=== PATIENT | female | born 1950 | race Caucasian/White ===

== ENCOUNTER 2022-07-17 21:46 | Inpatient (IN) | payer BC, MEDICARE ==
[2022-07-17 22:13] LABS: #Eosinphils 0.1 thou/uL (0.0-0.7); #Lymphocytes 1.2 thou/uL (1.20-3.40); #Monocytes 0.9 thou/uL (0.11-0.59); #Neutrophils 8.1 thou/uL (1.40-6.50); %Basophils 0.3 % (0.0-1.0); %Eosinophils 1.1 % (0.0-10.0); %Lymphocytes 11.3 % (21.0-51.0); %Monocytes 8.7 % (0.0-10.0); %Neutrophils 78.6 % (42.0-75.0); Hemoglobin 12.5 g/dL (12.0-16.0); Mean Corpuscular HGB CONC 32.6 g/dL (32.0-36.0); Mean Corpuscular Hemoglobin 31.3 pg (27.0-31.0); Mean Platelet Volume 6.9 fL (7.4-10.4); Platelet Count 215 10x3/uL (130-400); RBC Distribution Width 11.8 % (11.5-14.5); White Blood Cell (WBC) Count 10.3 10x3/uL (4.8-10.8)
[2022-07-17] MEDS ORDERED: CEFAZOLIN 2 GM VIAL ONE (22:13)
[2022-07-17] MEDS ORDERED: Ondansetron PF 4 MG/2 ML Vial ONE (22:13)
[2022-07-17] MEDS ORDERED: Morphine 4 MG/ML VIAL ONE (22:13)
[2022-07-17 22:36] LABS: ALT (SGPT) 29 U/L (8-55); AST (SGOT) 30 U/L (5-34); Albumin 3.9 g/dL (3.4-4.8); Alkaline Phosphatase 103 U/L (40-110); Anion Gap 15 mmol/L (10-20); BUN (Urea Nitrogen) 12 mg/dL (9.8-20.1); Bilirubin, Total 0.4 mg/dL (0.2-1.2); Calc. Creatinine Clearance 0 mL/min (70-130); Carbon Dioxide 23 mmol/L (23-31); Chloride 104 mmol/L (98-107); Estimated GFR 95; Globulin 2.4 g/dL (2.4-3.5); Glucose 108 mg/dL (83-110); Potassium 3.4 mmol/L (3.5-5.1); Protein, Total 6.3 g/dL (5.8-8.1); Sodium 139 mmol/L (136-145)
[2022-07-17] MEDS ORDERED: Dextrose 50% Abboject 50 ML SYRINGE SLOW IVP PRN (23:09)
[2022-07-17] MEDS ORDERED: Ondansetron ODT 4 MG TAB PO PRN (23:09)
[2022-07-17] MEDS ORDERED: Ondansetron PF 4 MG/2 ML Vial IVP PRN (23:09)
[2022-07-17] MEDS ORDERED: TETANUS, DIPHTHERIA TOX,ADULT (TDVAX) 0.5 ML VIAL IM ONE (23:09)
[2022-07-17] MEDS ORDERED: Dextrose 5% in Water 1,000 ML IV PRN (23:09)
[2022-07-17] MEDS ORDERED: Sodium Chloride 0.9% 1,000 ML IV SCH (23:15)
[2022-07-17] MEDS ORDERED: traMADol HCl 50 MG TAB PO PRN (23:19)
[2022-07-17] MEDS ORDERED: HYDROmorphone 0.5 MG/0.5 ML SYRINGE ONE (23:21)
[2022-07-17] MEDS ORDERED: Morphine 2 MG/ML VIAL SLOW IVP PRN (23:27)
[2022-07-17] MEDS ORDERED: Boostrix 0.5 ML (Tdap) VIAL (>/=7 yrs of age) ONE (23:30)
[2022-07-18 06:09] LABS: #Lymphocytes 0.2 thou/uL (1.20-3.40); #Monocytes 0.8 thou/uL (0.11-0.59); #Neutrophils 8.6 thou/uL (1.40-6.50); %Basophils 0.2 % (0.0-1.0); %Eosinophils 0.1 % (0.0-10.0); %Lymphocytes 2.4 % (21.0-51.0); %Monocytes 7.9 % (0.0-10.0); %Neutrophils 89.4 % (42.0-75.0); Hemoglobin 11.1 g/dL (12.0-16.0); Mean Corpuscular HGB CONC 33.7 g/dL (32.0-36.0); Mean Corpuscular Hemoglobin 31.9 pg (27.0-31.0); Mean Corpuscular Volume 94.7 fl (78.0-98.0); Mean Platelet Volume 6.7 fL (7.4-10.4); Platelet Count 209 10x3/uL (130-400); RBC Distribution Width 11.6 % (11.5-14.5); Red Blood Cell (RBC) Count 3.49 mill/uL (4.20-5.40); White Blood Cell (WBC) Count 9.6 10x3/uL (4.8-10.8)
[2022-07-18] MEDS ORDERED: traMADol HCl 50 MG TAB ONE (06:11)
[2022-07-18] MEDS: traMADol HCl 50 MG TAB PO SCH ×4 (06:20→17:58)
[2022-07-18] MEDS: Acetaminophen 500 MG TAB PO SCH ×4 (06:20→17:57)
[2022-07-18 06:33] LABS: Anion Gap 11 mmol/L (10-20); BUN (Urea Nitrogen) 11 mg/dL (9.8-20.1); Calc. Creatinine Clearance 0 mL/min (70-130); Calcium 8.7 mg/dL (7.8-10.44); Carbon Dioxide 23 mmol/L (23-31); Chloride 104 mmol/L (98-107); Estimated GFR 99; Glucose 150 mg/dL (83-110); Magnesium 1.9 mg/dL (1.6-2.6); Phosphorus 3.6 mg/dL (2.3-4.7); Potassium 3.9 mmol/L (3.5-5.1); Sodium 134 mmol/L (136-145)
[2022-07-18] MEDS ORDERED: Acetaminophen 500 MG TAB ONE (07:16)
[2022-07-18] MEDS ORDERED: Magnesium 2 GM/50 ML(in water) 2 GM in Premix Bag 1 BAG IVPB SCH (07:45)
[2022-07-18] MEDS ORDERED: Potassium Phosphate 15 MMOL in Sodium Chloride 0.9% 250 ML 250 ML IVPB SCH (07:45)
[2022-07-18] MEDS: Ibuprofen 200 MG TAB PO SCH ×3 (07:52→21:49)
[2022-07-18] MEDS: CEFAZOLIN 2 GM in Sodium Chloride 0.9% 100 ML IVPB SCH ×3 (07:53→21:51)
[2022-07-18] MEDS ORDERED: CEFAZOLIN 2 GM VIAL ONE ×2 (07:54→12:35)
[2022-07-18] MEDS ORDERED: Potassium Phosphate 15 MMOL, Magnesium Sulfate 2 GM in Sodium Chloride 0.9% 250 ML 250 ML IVPB SCH (08:00)
[2022-07-18 09:01] LABS: SARS-CoV-2 NAA Rapid Test Not Detected (NotDetected)
[2022-07-18 09:05] VITALS: BMI 32.0
[2022-07-18] MEDS: Ferrous Sulfate 325 MG TAB PO SCH (09:43)
[2022-07-18] MEDS ORDERED: Fioricet 325/50/40 mg Tablet PO PRN (10:48)
[2022-07-18] MEDS ORDERED: fentaNYL PF 100 MCG/2 ML SYRINGE ONE (10:56)
[2022-07-18] MEDS: Famotidine 20 MG TAB PO SCH ×2 (11:31→21:50)
[2022-07-18] MEDS: Ascorbic Acid 500 mg Chewable Tablet PO SCH (11:31)
[2022-07-18] MEDS: Gabapentin 300 MG CAP PO SCH ×2 (11:32→21:47)
[2022-07-18] MEDS ORDERED: Neomycin-Polymyxin 1 ML AMP ONE (11:48)
[2022-07-18] MEDS ORDERED: Sodium Chloride 0.9% 100 ML ONE (12:35)
[2022-07-18] MEDS ORDERED: Promethazine HCl 25 MG/ML VIAL ONE (12:37)
[2022-07-18] MEDS ORDERED: Ondansetron PF 4 MG/2 ML Vial ONE (12:43)
[2022-07-18] MEDS ORDERED: PROPOFOL 200 MG/20 ML VIAL ONE (12:43)
[2022-07-18] MEDS ORDERED: NEOSTIGMINE 3 MG/3 ML SYR 3 MG/3 ML SYRINGE ONE (12:43)
[2022-07-18] MEDS ORDERED: Dexamethasone 20 MG/5 ML VIAL ONE (12:43)
[2022-07-18] MEDS ORDERED: Lidocaine 1% PF 5 ML VIAL ONE (12:43)
[2022-07-18] MEDS ORDERED: Rocuronium Bromide 10 MG/ML (10ML VIAL) ONE (12:43)
[2022-07-18] MEDS ORDERED: Glycopyrrolate 0.2 MG/ML 5 ML SYRINGE ONE (12:43)
[2022-07-18] MEDS ORDERED: FLU VACC QS2022-23(65YR UP)/PF 240 MCG/0.7 ML SYRINGE IM ONE (12:45)
[2022-07-18] MEDS ORDERED: Ondansetron HCl/PF 4 MG/2 ML Vial IVP PRN (14:54)
[2022-07-18] MEDS ORDERED: Promethazine HCl 25 MG/ML VIAL IM PRN (14:54)
[2022-07-18] MEDS ORDERED: Fentanyl 100 MCG/2 ML VIAL ONE (15:00)
[2022-07-18] MEDS ORDERED: HYDROmorphone 0.5 MG/0.5 ML SYRINGE ONE (15:21)
[2022-07-18] MEDS ORDERED: CEFAZOLIN 2 GM in Sodium Chloride 0.9% 100 ML IVPB SCH (16:05)
[2022-07-19] MEDS: traMADol HCl 50 MG TAB PO SCH ×4 (00:26→17:57)
[2022-07-19] MEDS: Acetaminophen 500 MG TAB PO SCH ×4 (00:26→17:58)
[2022-07-19] MEDS ORDERED: Levothyroxine Sodium 125 MCG TAB PO SCH (06:00)
[2022-07-19] MEDS: Ibuprofen 200 MG TAB PO SCH ×2 (06:04→15:07)
[2022-07-19 07:23] LABS: Anion Gap 11 mmol/L (10-20); BUN (Urea Nitrogen) 6 mg/dL (9.8-20.1); Calc. Creatinine Clearance 125 mL/min (70-130); Calcium 8.1 mg/dL (7.8-10.44); Carbon Dioxide 22 mmol/L (23-31); Chloride 105 mmol/L (98-107); Estimated GFR 99; Glucose 106 mg/dL (83-110); Phosphorus 2.6 mg/dL (2.3-4.7); Sodium 134 mmol/L (136-145)
[2022-07-19 07:27] LABS: #Lymphocytes 0.7 thou/uL (1.20-3.40); #Monocytes 1.2 thou/uL (0.11-0.59); #Neutrophils 6.9 thou/uL (1.40-6.50); %Eosinophils 0.4 % (0.0-10.0); %Lymphocytes 7.5 % (21.0-51.0); %Monocytes 13.1 % (0.0-10.0); %Neutrophils 79.1 % (42.0-75.0); Hemoglobin 9.7 g/dL (12.0-16.0); Mean Corpuscular HGB CONC 33.2 g/dL (32.0-36.0); Mean Corpuscular Hemoglobin 31.9 pg (27.0-31.0); Mean Corpuscular Volume 96.1 fl (78.0-98.0); Mean Platelet Volume 6.8 fL (7.4-10.4); Platelet Count 200 10x3/uL (130-400); RBC Distribution Width 11.7 % (11.5-14.5); Red Blood Cell (RBC) Count 3.03 mill/uL (4.20-5.40); White Blood Cell (WBC) Count 8.8 10x3/uL (4.8-10.8)
[2022-07-19] MEDS ORDERED: Tranexamic Acid 1,000 MG in Sodium Chloride 0.9% 250 ML 250 ML IVPB SCH (09:00)
[2022-07-19] MEDS: Famotidine 20 MG TAB PO SCH ×2 (09:43→21:40)
[2022-07-19] MEDS: Ascorbic Acid 500 mg Chewable Tablet PO SCH (09:43)
[2022-07-19] MEDS: Gabapentin 300 MG CAP PO SCH ×2 (09:43→21:39)
[2022-07-19] MEDS: Ferrous Sulfate 325 MG TAB PO SCH (09:43)
[2022-07-19] MEDS: Milk Of Magnesia 30 ML UDCUP PO SCH (21:40)
[2022-07-19] MEDS: Senokot S 8.6-50 MG TAB PO SCH (21:40)
[2022-07-19] MEDS: Polyethylene Glycol 3350 17 GM Packet PO SCH (21:42)
[2022-07-19] MEDS: Bisacodyl 10 MG SUPP PR SCH (21:43)
[2022-07-19] MEDS ORDERED: Sodium Chloride 0.9% 1,000 ML IV SCH (23:55)
[2022-07-20] MEDS ORDERED: Tranexamic Acid 1,000 MG in Sodium Chloride 0.9% 100 ML IVPB SCH (05:00)
[2022-07-20] MEDS: traMADol HCl 50 MG TAB PO SCH ×2 (05:08)
[2022-07-20] MEDS: Thyroid 60 MG TAB PO SCH (05:08)
[2022-07-20] MEDS: Acetaminophen 500 MG TAB PO SCH ×5 (05:09→23:48)
[2022-07-20 06:16] LABS: Anion Gap 10 mmol/L (10-20); BUN (Urea Nitrogen) 8 mg/dL (9.8-20.1); Band 9 % (5-11); Calc. Creatinine Clearance 136 mL/min (70-130); Calcium 8.1 mg/dL (7.8-10.44); Carbon Dioxide 25 mmol/L (23-31); Chloride 103 mmol/L (98-107); Eosinophils 2 % (0-10); Estimated GFR 101; Glucose 99 mg/dL (83-110); Hemoglobin 9.5 g/dL (12.0-16.0); Hypochromia SLIGHT = 6-15 cells (100X) (0-5/hpf); Lymphocytes 4 % (21-51); MDiff Complete? YES; Magnesium 1.8 mg/dL (1.6-2.6); Mean Corpuscular HGB CONC 32.9 g/dL (32.0-36.0); Mean Corpuscular Hemoglobin 31.6 pg (27.0-31.0); Mean Corpuscular Volume 96.3 fl (78.0-98.0); Mean Platelet Volume 6.8 fL (7.4-10.4); Monocytes 13 % (0-10); Neutrophil 72 % (42-75); Phosphorus 2.6 mg/dL (2.3-4.7); Platelet Count 193 10x3/uL (130-400); Platelet Morphology Comment Appears Adequate; Potassium 3.8 mmol/L (3.5-5.1); RBC Distribution Width 11.7 % (11.5-14.5); Red Blood Cell (RBC) Count 3.01 mill/uL (4.20-5.40); Sodium 134 mmol/L (136-145)
[2022-07-20] MEDS ORDERED: Potassium Phosphate 30 MMOL, Magnesium Sulfate 2 GM in Sodium Chloride 0.9% 250 ML IVPB SCH (09:00)
[2022-07-20] MEDS ORDERED: Bisacodyl 10 MG SUPP PR SCH (09:00)
[2022-07-20] MEDS ORDERED: Polyethylene Glycol 3350 17 GM Packet PO SCH (09:00)
[2022-07-20] MEDS ORDERED: CEFAZOLIN 2 GM in Sodium Chloride 0.9% 100 ML IVPB SCH ×2 (09:00→14:00)
[2022-07-20] MEDS ORDERED: Vancomycin 1.5 GRAM/300 ML BAG 1.5 GM in Premix Bag 1 BAG IVPB SCH (09:00)
[2022-07-20] MEDS ORDERED: Milk Of Magnesia 30 ML UDCUP PO SCH (09:00)
[2022-07-20] MEDS ORDERED: Magnesium 2 GM/50 ML(in water) 2 GM in Premix Bag 1 BAG IVPB SCH (09:00)
[2022-07-20] MEDS ORDERED: Vancomycin (BATCH) 1.5 GRAM/300 ML BAG ONE (10:15)
[2022-07-20] MEDS ORDERED: Tranexamic Acid 1,000 MG/10 ML VIAL ONE (10:15)
[2022-07-20] MEDS ORDERED: Sodium Chloride 0.9% 100 ML ONE ×2 (10:15→11:26)
[2022-07-20] MEDS ORDERED: Fentanyl 100 MCG/2 ML VIAL ONE (10:41)
[2022-07-20] MEDS ORDERED: Midazolam HCl 2 mg/2 ml Vial ONE (11:09)
[2022-07-20] MEDS ORDERED: CEFAZOLIN 2 GM VIAL ONE (11:26)
[2022-07-20] MEDS ORDERED: HYDROcodone/Acetaminophen 10/325 mg Tablet PO PRN ×4 (11:31→12:00)
[2022-07-20] MEDS ORDERED: Bupivacaine HCl 0.5%/Epinephrine 1:200,000/PF 30 ml Vial ONE (11:36)
[2022-07-20] MEDS ORDERED: fentaNYL PF 100 MCG/2 ML SYRINGE ONE ×2 (11:47→15:14)
[2022-07-20] MEDS ORDERED: Fentanyl 100 MCG/2 ML VIAL IV PRN (11:58)
[2022-07-20] MEDS ORDERED: Lidocaine 1% PF 5 ML VIAL ONE (12:00)
[2022-07-20] MEDS ORDERED: Rocuronium Bromide 10 MG/ML (10ML VIAL) ONE (12:00)
[2022-07-20] MEDS ORDERED: Dexamethasone 20 MG/5 ML VIAL ONE (12:00)
[2022-07-20] MEDS ORDERED: Promethazine HCl 25 MG/ML VIAL IM PRN (12:00)
[2022-07-20] MEDS ORDERED: Ropivacaine 0.2% 550 ML 550 ML NERVE BLCK SCH (12:00)
[2022-07-20] MEDS ORDERED: traMADol HCl 50 MG TAB PO SCH (12:00)
[2022-07-20] MEDS ORDERED: Zolpidem Tartrate 5 MG TAB PO PRN (12:00)
[2022-07-20] MEDS ORDERED: Ondansetron PF 4 MG/2 ML Vial ONE (12:00)
[2022-07-20] MEDS ORDERED: Glycopyrrolate 0.2 MG/ML 5 ML SYRINGE ONE (12:00)
[2022-07-20] MEDS ORDERED: PROPOFOL 200 MG/20 ML VIAL ONE (12:00)
[2022-07-20] MEDS ORDERED: Ondansetron PF 4 MG/2 ML Vial IVP PRN (12:00)
[2022-07-20] MEDS ORDERED: NEOSTIGMINE 3 MG/3 ML SYR 3 MG/3 ML SYRINGE ONE (12:00)
[2022-07-20 12:42] LABS: Thyroid Stimulating Hormone 1.7065 uIU/mL (0.35-4.94)
[2022-07-20] MEDS ORDERED: SUGAMMADEX SODIUM 200 MG/2 ML VIAL ONE (12:52)
[2022-07-20] MEDS: Ascorbic Acid 500 mg Chewable Tablet PO SCH (14:14)
[2022-07-20] MEDS: Ferrous Sulfate 325 MG TAB PO SCH (14:14)
[2022-07-20] MEDS: Gabapentin 300 MG CAP PO SCH ×2 (14:16→21:16)
[2022-07-20] MEDS: Famotidine 20 MG TAB PO SCH ×2 (14:16→21:15)
[2022-07-20] MEDS: Senokot S 8.6-50 MG TAB PO SCH ×2 (14:16→21:15)
[2022-07-20] MEDS: CEFAZOLIN 2 GM in Sodium Chloride 0.9% 100 ML IVPB SCH (21:13)
[2022-07-20] MEDS: Bisacodyl 10 MG SUPP PR SCH (21:16)
[2022-07-20] MEDS: Polyethylene Glycol 3350 17 GM Packet PO SCH (21:17)
[2022-07-20] MEDS: Milk Of Magnesia 30 ML UDCUP PO SCH (23:46)
[2022-07-20] MEDS: Vancomycin 1.5 GRAM/300 ML BAG 1.5 GM in Premix Bag 1 BAG IVPB SCH (23:50)
[2022-07-21] MEDS: CEFAZOLIN 2 GM in Sodium Chloride 0.9% 100 ML IVPB SCH ×2 (04:05→17:19)
[2022-07-21 05:42] LABS: Hemoglobin 8.4 g/dL (12.0-16.0); Mean Corpuscular Hemoglobin 31.5 pg (27.0-31.0); Mean Corpuscular Volume 95.4 fl (78.0-98.0); Platelet Count 201 10x3/uL (130-400); RBC Distribution Width 11.7 % (11.5-14.5); Red Blood Cell (RBC) Count 2.68 mill/uL (4.20-5.40); White Blood Cell (WBC) Count 7.5 10x3/uL (4.8-10.8)
[2022-07-21] MEDS: Thyroid 60 MG TAB PO SCH (05:46)
[2022-07-21] MEDS: Acetaminophen 500 MG TAB PO SCH ×2 (05:46→18:30)
[2022-07-21 06:03] LABS: Anion Gap 12 mmol/L (10-20); BUN (Urea Nitrogen) 7 mg/dL (9.8-20.1); Calc. Creatinine Clearance 130 mL/min (70-130); Calcium 8.6 mg/dL (7.8-10.44); Carbon Dioxide 25 mmol/L (23-31); Chloride 103 mmol/L (98-107); Estimated GFR 100; Glucose 114 mg/dL (83-110); Magnesium 1.9 mg/dL (1.6-2.6); Phosphorus 3.1 mg/dL (2.3-4.7); Sodium 136 mmol/L (136-145)
[2022-07-21 06:16] LABS: Band 2 % (5-11); Lymphocytes 6 % (21-51); MDiff Complete? YES; Monocytes 16 % (0-10); Neutrophil 76 % (42-75)
[2022-07-21] MEDS: Gabapentin 300 MG CAP PO SCH ×2 (08:52→20:32)
[2022-07-21] MEDS: Famotidine 20 MG TAB PO SCH ×2 (08:52→20:32)
[2022-07-21] MEDS: Senokot S 8.6-50 MG TAB PO SCH ×2 (08:53→20:35)
[2022-07-21] MEDS: Ascorbic Acid 500 mg Chewable Tablet PO SCH (08:54)
[2022-07-21] MEDS: traMADol HCl 50 MG TAB PO PRN ×2 (08:54→20:38)
[2022-07-21] MEDS: Ferrous Sulfate 325 MG TAB PO SCH (08:54)
[2022-07-21] MEDS ORDERED: Magnesium 2 GM/50 ML(in water) 2 GM in Premix Bag 1 BAG IVPB SCH (09:00)
[2022-07-21] MEDS: Vancomycin 1.5 GRAM/300 ML BAG 1.5 GM in Premix Bag 1 BAG IVPB SCH ×2 (11:01→20:37)
[2022-07-21] MEDS ORDERED: methylPREDNISolone Acetate 40 mg/ml Vial IM SCH (12:00)
[2022-07-21] MEDS ORDERED: Lidocaine 1% (PF) 30 ML VIAL SC SCH (12:00)
[2022-07-21] MEDS: Bisacodyl 10 MG SUPP PR SCH (20:31)
[2022-07-21] MEDS: Milk Of Magnesia 30 ML UDCUP PO SCH (20:34)
[2022-07-21] MEDS: Polyethylene Glycol 3350 17 GM Packet PO SCH (20:35)
[2022-07-22] MEDS ORDERED: diphenhydrAMINE 25 MG CAP PO PRN (00:15)
[2022-07-22] MEDS: Thyroid 60 MG TAB PO SCH (05:27)
[2022-07-22 06:55] LABS: #Lymphocytes 0.5 thou/uL (1.20-3.40); #Monocytes 1.1 thou/uL (0.11-0.59); #Neutrophils 6.3 thou/uL (1.40-6.50); %Eosinophils 0.2 % (0.0-10.0); %Lymphocytes 5.7 % (21.0-51.0); %Monocytes 13.5 % (0.0-10.0); %Neutrophils 80.5 % (42.0-75.0); Hemoglobin 8.8 g/dL (12.0-16.0); Mean Corpuscular HGB CONC 32.8 g/dL (32.0-36.0); Mean Corpuscular Hemoglobin 31.4 pg (27.0-31.0); Mean Corpuscular Volume 95.6 fl (78.0-98.0); Platelet Count 270 10x3/uL (130-400); RBC Distribution Width 11.7 % (11.5-14.5); White Blood Cell (WBC) Count 7.9 10x3/uL (4.8-10.8)
[2022-07-22 07:08] LABS: Anion Gap 10 mmol/L (10-20); BUN (Urea Nitrogen) 9 mg/dL (9.8-20.1); Calc. Creatinine Clearance 136 mL/min (70-130); Calcium 8.6 mg/dL (7.8-10.44); Carbon Dioxide 26 mmol/L (23-31); Chloride 103 mmol/L (98-107); Estimated GFR 101; Glucose 122 mg/dL (83-110); Magnesium 1.9 mg/dL (1.6-2.6); Phosphorus 3.3 mg/dL (2.3-4.7); Potassium 4.3 mmol/L (3.5-5.1); Sodium 135 mmol/L (136-145)
[2022-07-22] MEDS: Ferrous Sulfate 325 MG TAB PO SCH (09:24)
[2022-07-22] MEDS: Famotidine 20 MG TAB PO SCH ×2 (09:25→22:10)
[2022-07-22] MEDS: Senokot S 8.6-50 MG TAB PO SCH ×2 (09:25→22:12)
[2022-07-22] MEDS: Gabapentin 300 MG CAP PO SCH ×2 (09:25→22:10)
[2022-07-22] MEDS: Ascorbic Acid 500 mg Chewable Tablet PO SCH (09:25)
[2022-07-22] MEDS: traMADol HCl 50 MG TAB PO PRN ×2 (14:56→22:08)
[2022-07-22] MEDS: Bisacodyl 10 MG SUPP PR SCH (22:08)
[2022-07-22] MEDS: Milk Of Magnesia 30 ML UDCUP PO SCH (22:12)
[2022-07-22] MEDS: Polyethylene Glycol 3350 17 GM Packet PO SCH (22:12)
[2022-07-23] MEDS: Thyroid 60 MG TAB PO SCH (06:00)
[2022-07-23 08:17] LABS: Band 3 % (5-11); Eosinophils 2 % (0-10); Hemoglobin 8.4 g/dL (12.0-16.0); Hypochromia SLIGHT = 6-15 cells (100X) (0-5/hpf); Lymphocytes 11 % (21-51); MDiff Complete? YES; Mean Corpuscular HGB CONC 32.9 g/dL (32.0-36.0); Mean Corpuscular Hemoglobin 31.5 pg (27.0-31.0); Mean Corpuscular Volume 95.6 fl (78.0-98.0); Mean Platelet Volume 6.8 fL (7.4-10.4); Monocytes 12 % (0-10); Neutrophil 72 % (42-75); Platelet Count 267 10x3/uL (130-400); Platelet Morphology Comment Appears Adequate; RBC Distribution Width 11.8 % (11.5-14.5); Red Blood Cell (RBC) Count 2.66 mill/uL (4.20-5.40); White Blood Cell (WBC) Count 7.4 10x3/uL (4.8-10.8)
[2022-07-23] MEDS: Ferrous Sulfate 325 MG TAB PO SCH (09:25)
[2022-07-23] MEDS: Senokot S 8.6-50 MG TAB PO SCH (09:25)
[2022-07-23] MEDS: Gabapentin 300 MG CAP PO SCH (09:25)
[2022-07-23] MEDS: Ascorbic Acid 500 mg Chewable Tablet PO SCH (09:25)
[2022-07-23] MEDS: Famotidine 20 MG TAB PO SCH (09:25)
[2022-07-23 11:39] VITALS: BP 113/73; TEMP 98
[2022-07-23] MEDS: traMADol HCl 50 MG TAB PO PRN (12:49)
== END 2022-07-23 16:45 | DRG 483 ==
LOC: ERS 21:46 → ERHOLD 23:09 → SJJU 07-18 09:43
PROVIDERS: ADMIT Surgery; ATTEND Surgery
PROC: 0PSK04Z Reposition Right Ulna with Internal Fixation Device, Open Approach (ICD-10-PCS; principal; 2022-07-18)
PROC: 0RRJ00Z Replacement of Right Shoulder Joint with Reverse Ball and Socket Synthetic Substitute, Open Approach (ICD-10-PCS; 2022-07-20)
DX: S52.021A Displaced fracture of olecranon process without intraarticular extension of right ulna, initial encounter for closed fracture (principal); S42.201A Unspecified fracture of upper end of right humerus, initial encounter for closed fracture; M48.14 Ankylosing hyperostosis [Forestier], thoracic region; E03.9 Hypothyroidism, unspecified; Z20.822 Contact with and (suspected) exposure to COVID-19; Z79.899 Other long term (current) drug therapy; W18.30XA Fall on same level, unspecified, initial encounter; S46.211A Strain of muscle, fascia and tendon of other parts of biceps, right arm, initial encounter; Z88.6 Allergy status to analgesic agent; Z79.890 Hormone replacement therapy; Z88.8 Allergy status to other drugs, medicaments and biological substances; M17.12 Unilateral primary osteoarthritis, left knee
CPT/HCPCS: 29105; 36415; 70450; 71045; 72125; 72146; 72148; 72170; 74176; 80048; 80053; 83735; 84100; 84436; 84443; 84479; 85025; 86850; 86900; 86901; 90715; 93005; 96365; 96375; 97139; A4306; C1713; C1776; G0390; J1030; J1100; J1170; J1650; J2250; J2270; J2405; J2550; J2704; J2795; J3010; J3370; J3475; J3490; J7030; J7050; U0002